=== PATIENT | female | born 1945 | race Caucasian/White ===

== ENCOUNTER 2018-02-25 11:16 | Inpatient (IN) | payer MEDICARE, OTHER ==
[~2018-02-25] VITALS: Ht 152.4 cm; Wt 91.4 kg
[2018-02-25 12:38] LABS: ALANINE AMINOTRANSFERASE 41 U/L (12-78); ALBUMIN 3.6 g/dL (3.4-5.0); ANION GAP 7 mmol/L (5-15); CALCIUM 7.9 mg/dL (8.5-10.1); CHLORIDE 106 mmol/L (98-107); CREATININE 1.12 mg/dL (0.55-1.02)
[2018-02-25 12:43] LABS: ALKALINE PHOSPHATASE 105 U/L (45-117); BILIRUBIN,TOTAL 0.4 mg/dL (0.2-1.0); FREE T4 (FREE THYROXINE) 1.09 ng/dL (0.76-1.46); TOTAL PROTEIN 7.6 g/dL (6.4-8.2); TROPONIN I 0.099 ng/mL (0.000-0.045)
[2018-02-25 12:50] LABS: MEAN CORPUSCULAR HGB CONC 30.8 g/dL (32.4-35.8); MEAN CORPUSCULAR VOLUME 68.3 fL (80-100); MEAN PLATELET VOLUME 8.4 fL (7.4-10.4); PLATELET COUNT 286 x10^3/uL (130-400); RED BLOOD COUNT 3.63 x10^6/uL (3.82-5.3); RED CELL DISTRIBUTION WIDTH 18.1 % (9.6-15.2)
[2018-02-25] MEDS ORDERED: MONT10TA6 PO (12:53)
[2018-02-25] MEDS ORDERED: DICL75TA2 PO (12:53)
[2018-02-25] MEDS ORDERED: OMEP-110 PO (12:53)
[2018-02-25] MEDS ORDERED: HYDR-3307 PO (12:53)
[2018-02-25] MEDS ORDERED: SITA100T PO (12:53)
[2018-02-25] MEDS ORDERED: ATOR40TA78 PO (12:53)
[2018-02-25] MEDS ORDERED: LISI2.5T PO (12:53)
[2018-02-25] MEDS ORDERED: ASPI-430 PO (12:53)
[2018-02-25] MEDS ORDERED: CARB200T PO (12:53)
[2018-02-25] MEDS ORDERED: FLUO20CA19 PO (12:53)
[2018-02-25 13:27] LABS: MD MORPH REVIEW ONLY
[2018-02-25 13:28] LABS: BASOPHILS % (AUTO) 0 % (0-1); EOSINOPHILS % (AUTO) 2 % (1-7); LYMPHOCYTES # (AUTO) 0.77 x10^3/uL (1-3.4); LYMPHOCYTES % (AUTO) 9 % (22-44); MONOCYTES % (AUTO) 5 % (2-9); NEUTROPHILS # (AUTO) 7.65 x10^3/uL (1.8-6.8); NEUTROPHILS % (AUTO) 84 % (42-75)
[2018-02-25 13:29] LABS: ACANTHOCYTES 1+; ANISOCYTOSIS 2+; ECHINOCYTES 1+; HYPOCHROMIA 2+; MICROCYTOSIS 2+; POLYCHROMASIA 1+; SCHISTOCYTES 1+; TARGET CELLS 1+
[2018-02-25 13:31] LABS: SPHEROCYTES 1+
[2018-02-25 13:35] LABS: <PLATELET ESTIMATE> ADEQUATE; <PLT MORPHOLOGY> NORMAL PLT MORPH
[2018-02-25 15:02] LABS: MICROSCOPIC INDICATED
[2018-02-25 15:53] LABS: CULTURE INDICATED? YES
[2018-02-25] MEDS ORDERED: ACETAMINOPHEN 325 MG TABLET PO PRN (16:30)
[2018-02-25] MEDS ORDERED: BISACODYL 10 MG SUPP PR PRN (16:30)
[2018-02-25] MEDS ORDERED: ENOXAPARIN 40 MG/0.4 ML SQ SCH (16:30)
[2018-02-25] MEDS ORDERED: GLUCAGON 1 MG IM PRN (16:30)
[2018-02-25] MEDS ORDERED: POLYETHYLENE GLYCOL 17 GM PACKET PO PRN (16:30)
[2018-02-25] MEDS ORDERED: METHOCARBAMOL 500 MG TABLET PO PRN (16:30)
[2018-02-25] MEDS ORDERED: ENALAPRILAT 1.25 MG/ML, 2ML IVPush PRN (16:30)
[2018-02-25] MEDS ORDERED: ONDANSETRON ODT 4 MG PO PRN (16:30)
[2018-02-25] MEDS ORDERED: DEXTROSE 4 GM TAB.CHEW PO PRN (16:30)
[2018-02-25] MEDS: INSULIN LISPRO 100 UNITS/ML, PEN SQ-INSULIN SCH ×2 (16:30→21:00)
[2018-02-25] MEDS ORDERED: LIDODERM 5% PATCH TD PRN (16:30)
[2018-02-25] MEDS ORDERED: DEXTROSE 50%, 50ML SYRINGE IVPush PRN (16:30)
[2018-02-25] MEDS ORDERED: NITROGLYCERIN 0.4 MG BOTTLE (25 TABS) SL PRN (17:00)
[2018-02-25] MEDS ORDERED: NITROGLYCERIN 0.4 MG/SPRAY SL PRN (17:00)
[2018-02-25 17:02] LABS: HEMOGLOBIN A1C 7.1 % (4.2-6.3)
[2018-02-25 17:19] LABS: THYROID STIMULATING HORMONE 2.65 mIU/L (0.358-3.740)
[2018-02-25] MEDS ORDERED: GUAIFENESIN 100 MG/5 ML, 10ML UDC PO PRN (17:30)
[2018-02-25] MEDS ORDERED: FUROSEMIDE 20 MG/2 ML IV ONE (18:00)
[2018-02-25 18:37] LABS: TROPONIN I 0.446 ng/mL (0.000-0.045)
[2018-02-25] MEDS: HYDROcodone/APAP 5/325 TABLET PO PRN (19:55)
[2018-02-25 20:32] VITALS: BP 114/68
[2018-02-25] MEDS: SODIUM CHLORIDE FLUSH 10ML SYR IVF SCH (21:00)
[2018-02-25] MEDS: CARBAMAZEPINE 200 MG TABLET PO SCH (21:00)
[2018-02-25] MEDS ORDERED: DICLOFENAC SODIUM 75 MG PO SCH (21:00)
[2018-02-25] MEDS: METHYLNALTREXONE 12 MG/0.6 ML SQ SCH (21:08)
[2018-02-25] MEDS: ASPIRIN 81 MG TABLET EC PO SCH (21:09)
[2018-02-25] MEDS: FLUOXETINE HCL 20 MG CAPSULE PO SCH (21:09)
[2018-02-25] MEDS: MONTELUKAST 10 MG TABLET PO SCH (21:09)
[2018-02-25] MEDS: OMEPRAZOLE 20 MG CAPSULE.DR PO SCH (21:09)
[2018-02-25] MEDS: ATORVASTATIN 40 MG TABLET PO SCH (21:09)
[2018-02-25 21:50] LABS: AMPHETAMINE SCREEN, URINE Negative (Negative); BARBITURATE SCREEN, URINE Negative (Negative); BENZODIAZEPINE SCREEN, URINE Negative (Negative); CANNABINOID SCREEN, URINE Negative (Negative); COCAINE SCREEN, URINE Negative (Negative); METHADONE SCREEN, URINE Negative (Negative); OPIATE SCREEN, URINE Positive (Negative)
[2018-02-26] VITALS (9 sets, daily range): BP systolic 97–131; BP diastolic 62–84
[2018-02-26 00:53] LABS: TROPONIN I 0.714 ng/mL (0.000-0.045)
[2018-02-26 04:45] LABS: MEAN CORPUSCULAR HGB CONC 30.7 g/dL (32.4-35.8); MEAN CORPUSCULAR VOLUME 68.2 fL (80-100); MEAN PLATELET VOLUME 8.1 fL (7.4-10.4); PLATELET COUNT 288 x10^3/uL (130-400); RED BLOOD COUNT 3.61 x10^6/uL (3.82-5.3); RED CELL DISTRIBUTION WIDTH 17.9 % (9.6-15.2)
[2018-02-26 04:55] LABS: ANION GAP 6 mmol/L (5-15); CALCIUM 8.2 mg/dL (8.5-10.1); CHLORIDE 105 mmol/L (98-107)
[2018-02-26 04:56] LABS: CREATININE 0.88 mg/dL (0.55-1.02)
[2018-02-26 05:07] LABS: BASOPHILS # (AUTO) 0.01 x10^3/uL (0-0.1); BASOPHILS % (AUTO) 0 % (0-1); EOSINOPHILS # (AUTO) 0.11 x10^3/uL (0-0.4); EOSINOPHILS % (AUTO) 1 % (1-7); LYMPHOCYTES # (AUTO) 1.48 x10^3/uL (1-3.4); LYMPHOCYTES % (AUTO) 16 % (22-44); MD SCAN; MONOCYTES # (AUTO) 0.66 x10^3/uL (0.2-0.8); MONOCYTES % (AUTO) 7 % (2-9); NEUTROPHILS # (AUTO) 6.99 x10^3/uL (1.8-6.8); NEUTROPHILS % (AUTO) 76 % (42-75)
[2018-02-26 06:40] LABS: TROPONIN I 0.781 ng/mL (0.000-0.045)
[2018-02-26] MEDS: IRON SUCROSE COMPLEX 100MG/5ML IV SCH (08:51)
[2018-02-26] MEDS: FLUOXETINE HCL 20 MG CAPSULE PO SCH ×2 (08:55→21:17)
[2018-02-26] MEDS: OMEPRAZOLE 20 MG CAPSULE.DR PO SCH ×2 (08:55→17:33)
[2018-02-26] MEDS: CARBAMAZEPINE 200 MG TABLET PO SCH ×2 (08:55→21:10)
[2018-02-26] MEDS: SENNA/DOCUSATE TABLET PO SCH (08:55)
[2018-02-26] MEDS: SODIUM CHLORIDE FLUSH 10ML SYR IVF SCH ×2 (09:01→21:00)
[2018-02-26] MEDS: INSULIN LISPRO 100 UNITS/ML, PEN SQ-INSULIN SCH ×4 (09:16→20:36)
[2018-02-26] MEDS: HYDROcodone/APAP 5/325 TABLET PO PRN ×3 (09:16→23:33)
[2018-02-26] MEDS ORDERED: NITROGLYCERIN 0.4 MG/SPRAY SL PRN (12:30)
[2018-02-26] MEDS ORDERED: NITROGLYCERIN 0.4 MG BOTTLE (25 TABS) SL PRN (12:30)
[2018-02-26 13:04] LABS: OCCULT BLOOD NEGATIVE (NEGATIVE)
[2018-02-26 14:03] LABS: INTERNATIONAL NORMALIZED RATIO 1.11 (0.93-1.1); PROTHROMBIN TIME 11.4 Seconds (9.6-11.5)
[2018-02-26 14:08] LABS: ALBUMIN 3.6 g/dL (3.4-5.0); BILIRUBIN, DIRECT 0.1 mg/dL (0.1-0.2)
[2018-02-26 14:10] LABS: ABSOLUTE RETICS # 0.065 x10^6/uL (0.5-2.5); BILIRUBIN,INDIRECT 0.3 mg/dL (0.0-2.0); BILIRUBIN,TOTAL 0.4 mg/dL (0.2-1.0); RED BLOOD COUNT 3.76 x10^6/uL (3.82-5.3); RETICULOCYTE COUNT % 1.73 % (0.5-1.5); TOTAL PROTEIN 7.6 g/dL (6.4-8.2)
[2018-02-26 18:58] LABS: OCCULT BLOOD NEGATIVE (NEGATIVE)
[2018-02-26] MEDS: ASPIRIN 81 MG TABLET EC PO SCH (21:08)
[2018-02-26] MEDS: ATORVASTATIN 40 MG TABLET PO SCH (21:08)
[2018-02-26] MEDS: MONTELUKAST 10 MG TABLET PO SCH (21:09)
[2018-02-26] MEDS: metroNIDAZOLE 500 MG TABLET PO SCH (21:10)
[2018-02-26] MEDS: CLARITHROMYCIN 500 MG TABLET PO SCH (21:10)
[2018-02-26] MEDS: TRAZODONE 50MG TABLET PO PRN (23:33)
[2018-02-27] VITALS (8 sets, daily range): BP systolic 87–126; BP diastolic 48–78
[2018-02-27 05:23] LABS: BASOPHILS # (AUTO) 0.03 x10^3/uL (0-0.1); BASOPHILS % (AUTO) 0 % (0-1); EOSINOPHILS # (AUTO) 0.18 x10^3/uL (0-0.4); EOSINOPHILS % (AUTO) 2 % (1-7); LYMPHOCYTES # (AUTO) 1.83 x10^3/uL (1-3.4); LYMPHOCYTES % (AUTO) 20 % (22-44); MD NO; MEAN CORPUSCULAR HEMOGLOBIN 22.1 pg (27.0-34.8); MEAN CORPUSCULAR HGB CONC 31.6 g/dL (32.4-35.8); MEAN CORPUSCULAR VOLUME 69.9 fL (80-100); MEAN PLATELET VOLUME 7.9 fL (7.4-10.4); MONOCYTES # (AUTO) 0.81 x10^3/uL (0.2-0.8); MONOCYTES % (AUTO) 9 % (2-9); NEUTROPHILS % (AUTO) 69 % (42-75); PLATELET COUNT 255 x10^3/uL (130-400); RED BLOOD COUNT 3.52 x10^6/uL (3.82-5.3); RED CELL DISTRIBUTION WIDTH 19.6 % (9.6-15.2)
[2018-02-27 05:36] LABS: CHLORIDE 102 mmol/L (98-107)
[2018-02-27 06:02] LABS: ANION GAP 11 mmol/L (5-15); CHOL/HDL RATIO 2.3; CHOLESTEROL, TOTAL 98 mg/dL (140-239); CREATININE 0.77 mg/dL (0.55-1.02); HDL CHOL % 44 % (28-40); HDL CHOLESTEROL (DIRECT) 43 mg/dL (40-60); LDL CHOLESTEROL,CALCULATED 40 mg/dL (54-169); LDL/HDL RATIO 0.9 (0.5-3.0); TRIGLYCERIDES 77 mg/dL (50-200); VLDL CHOLESTEROL 15 mg/dL (0-25)
[2018-02-27] MEDS: SODIUM CHLORIDE FLUSH 10ML SYR IVF SCH ×2 (09:00→21:28)
[2018-02-27] MEDS: metroNIDAZOLE 500 MG TABLET PO SCH ×2 (09:00→21:30)
[2018-02-27] MEDS: IRON SUCROSE COMPLEX 100MG/5ML IV SCH (09:14)
[2018-02-27] MEDS: INSULIN LISPRO 100 UNITS/ML, PEN SQ-INSULIN SCH ×4 (09:14→21:25)
[2018-02-27] MEDS: OMEPRAZOLE 20 MG CAPSULE.DR PO SCH ×2 (09:15→16:59)
[2018-02-27] MEDS: SENNA/DOCUSATE TABLET PO SCH (09:15)
[2018-02-27] MEDS: CARBAMAZEPINE 200 MG TABLET PO SCH ×2 (09:17→21:24)
[2018-02-27] MEDS: CLARITHROMYCIN 500 MG TABLET PO SCH ×2 (09:17→21:27)
[2018-02-27] MEDS: FLUOXETINE HCL 20 MG CAPSULE PO SCH ×2 (09:17→21:24)
[2018-02-27] MEDS ORDERED: FUROSEMIDE 20 MG/2 ML IV SCH (15:30)
[2018-02-27] MEDS: FUROSEMIDE 40 MG/4 ML IV SCH (16:58)
[2018-02-27] MEDS: CARVEDILOL 3.125 MG TABLET PO SCH (17:00)
[2018-02-27 17:27] LABS: TROPONIN I 0.255 ng/mL (0.000-0.045)
[2018-02-27] MEDS: ASPIRIN 81 MG TABLET EC PO SCH (21:24)
[2018-02-27] MEDS: ATORVASTATIN 40 MG TABLET PO SCH (21:24)
[2018-02-27] MEDS: TRAZODONE 50MG TABLET PO PRN (21:24)
[2018-02-27] MEDS: MONTELUKAST 10 MG TABLET PO SCH (21:25)
[2018-02-27] MEDS: METHYLNALTREXONE 12 MG/0.6 ML SQ SCH (21:29)
[2018-02-28 02:19] VITALS: BP 129/66
[2018-02-28 06:14] VITALS: BP 117/73
[2018-02-28 06:16] LABS: BASOPHILS % (AUTO) 0 % (0-1); EOSINOPHILS # (AUTO) 0.18 x10^3/uL (0-0.4); EOSINOPHILS % (AUTO) 2 % (1-7); LYMPHOCYTES # (AUTO) 1.72 x10^3/uL (1-3.4); LYMPHOCYTES % (AUTO) 21 % (22-44); MD NO; MEAN CORPUSCULAR HGB CONC 31.5 g/dL (32.4-35.8); MEAN CORPUSCULAR VOLUME 72.9 fL (80-100); MEAN PLATELET VOLUME 8.1 fL (7.4-10.4); MONOCYTES # (AUTO) 0.75 x10^3/uL (0.2-0.8); MONOCYTES % (AUTO) 9 % (2-9); NEUTROPHILS # (AUTO) 5.78 x10^3/uL (1.8-6.8); NEUTROPHILS % (AUTO) 69 % (42-75); PLATELET COUNT 273 x10^3/uL (130-400); RED BLOOD COUNT 4.13 x10^6/uL (3.82-5.3); RED CELL DISTRIBUTION WIDTH 21.1 % (9.6-15.2)
[2018-02-28] MEDS: CARVEDILOL 3.125 MG TABLET PO SCH (06:16)
[2018-02-28 06:25] LABS: ALBUMIN 3.5 g/dL (3.4-5.0); ANION GAP 10 mmol/L (5-15); CALCIUM 8.3 mg/dL (8.5-10.1); CHLORIDE 103 mmol/L (98-107); CREATININE 0.91 mg/dL (0.55-1.02)
[2018-02-28 06:31] LABS: TROPONIN I 0.226 ng/mL (0.000-0.045)
[2018-02-28 06:58] VITALS: BP 104/60
[2018-02-28] MEDS: INSULIN LISPRO 100 UNITS/ML, PEN SQ-INSULIN SCH ×2 (08:10→12:41)
[2018-02-28] MEDS ORDERED: IRON SUCROSE COMPLEX 100MG/5ML IV SCH (09:00)
[2018-02-28] MEDS: IRON SUCROSE COMPLEX 100MG/5ML IV SCH (09:43)
[2018-02-28] MEDS: FUROSEMIDE 40 MG/4 ML IV SCH (09:43)
[2018-02-28] MEDS: OMEPRAZOLE 20 MG CAPSULE.DR PO SCH (09:43)
[2018-02-28] MEDS: CARBAMAZEPINE 200 MG TABLET PO SCH (09:44)
[2018-02-28] MEDS: SODIUM CHLORIDE FLUSH 10ML SYR IVF SCH (09:44)
[2018-02-28] MEDS: FLUOXETINE HCL 20 MG CAPSULE PO SCH (09:45)
[2018-02-28] MEDS: SENNA/DOCUSATE TABLET PO SCH (09:45)
[2018-02-28] MEDS: metroNIDAZOLE 500 MG TABLET PO SCH (09:45)
[2018-02-28] MEDS: CLARITHROMYCIN 500 MG TABLET PO SCH (09:45)
[2018-02-28] MEDS ORDERED: OMEP-110 PO (13:08)
[2018-02-28] MEDS ORDERED: CARV3.1212 PO (13:08)
[2018-02-28] MEDS ORDERED: SENN17.23 PO (13:08)
[2018-02-28] MEDS ORDERED: METR500T PO (13:08)
[2018-02-28] MEDS ORDERED: POLY17PO5 PO (13:08)
[2018-02-28] MEDS ORDERED: CLAR500T PO (13:08)
[2018-02-28] MEDS ORDERED: FURO40TA6 PO (13:10)
[2018-02-28] MEDS ORDERED: POTA20PA25 PO (13:10)
[2018-02-28 13:31] VITALS: BP 97/60
== END 2018-02-28 16:31 | disposition home health service (06) | DRG 70 ==
LOC: ED 12:52 → EDIP 15:14 → 4WST 17:56
PROVIDERS: ADMIT Internal Medicine; ATTEND Internal Medicine
PROC: 0T9B70Z Drainage of Bladder with Drainage Device, Via Natural or Artificial Opening (ICD-10-PCS; principal; 2018-02-25)
PROC: 30233N1 Transfusion of Nonautologous Red Blood Cells into Peripheral Vein, Percutaneous Approach (ICD-10-PCS; 2018-02-26)
DX: G93.41 Metabolic encephalopathy (principal); I50.41 Acute combined systolic (congestive) and diastolic (congestive) heart failure; F11.20 Opioid dependence, uncomplicated; I11.0 Hypertensive heart disease with heart failure; E11.40 Type 2 diabetes mellitus with diabetic neuropathy, unspecified; D50.9 Iron deficiency anemia, unspecified; F41.9 Anxiety disorder, unspecified; K59.09 Other constipation; G89.29 Other chronic pain; I25.10 Atherosclerotic heart disease of native coronary artery without angina pectoris; H54.7 Unspecified visual loss; F03.90 Unspecified dementia, unspecified severity, without behavioral disturbance, psychotic disturbance, mood disturbance, and anxiety; B96.81 Helicobacter pylori [H. pylori] as the cause of diseases classified elsewhere; E11.51 Type 2 diabetes mellitus with diabetic peripheral angiopathy without gangrene; G47.00 Insomnia, unspecified; E66.9 Obesity, unspecified; K21.9 Gastro-esophageal reflux disease without esophagitis; Z66 Do not resuscitate; Z95.5 Presence of coronary angioplasty implant and graft; Z82.49 Family history of ischemic heart disease and other diseases of the circulatory system; Z88.0 Allergy status to penicillin; Z68.39 Body mass index [BMI] 39.0-39.9, adult; Z79.899 Other long term (current) drug therapy; Z79.1 Long term (current) use of non-steroidal anti-inflammatories (NSAID); Z79.2 Long term (current) use of antibiotics
CPT/HCPCS: 36415; 70450; 71045; 74177; 80048; 80053; 80061; 80076; 80156; 80307; 81001; 82040; 82140; 82272; 82330; 82607; 82728; 82962; 83036; 83540; 83550; 83605; 83735; 83880; 84100; 84145; 84439; 84443; 84466; 84484; 85014; 85018; 85025; 85045; 85610; 86677; 86850; 86900; 86923; 87040; 87086; 93005; 93306; 99285; G0378; J1650; J1756; J1940; J1815; P9016

== ENCOUNTER 2020-03-31 18:34 | Emergency (ER) | payer MEDICARE, OTHER ==
[~2020-03-31] VITALS: Ht 167.6 cm; Wt 77.3 kg
[~2020-03-31 18:34] MED LIST: ASPI-430 PO; ATOR40TA78 PO; CARB200T PO; CARV3.1212 PO; CLAR-14 PO; DICL75TA3 PO; FLUO20CA19 PO; FURO40TA6 PO; HYDR-3246 PO; LISI2.5T PO; METR500T PO; MONT10TA6 PO; OMEP-110 PO; POLY17PO5 PO; POTA20PA25 PO; SENN17.23 PO; SITA100T PO
--- NOTE | 2020-03-31 18:40 | NUR ---
PT BIB [facility] FROM THE [facility] WHERE SHE SUSTAINED A MECH GLF, HITTING THE LEFT SIDE OF HER HEAD AND HER L WRIST. PT HAS LARGE HEMATOMA AND SMALL LACERATION TO L FOREHEAD, AND MILD SWELLING TO L WRIST. HX DEMENTIA, OX2, AT BASELINE. PER EMS, PT WAS HYPERTENSIVE EN ROUTE 250/80, BUT BP CAME DOWN TO 156/84 JUST BEFORE ARRIVAL. PT TAKES A BABY ASPIRIN. EMS REPORTED PT HAS HAD SEVERAL FALLS RECENTLY.
[2020-03-31] MEDS ORDERED: DIPH,PERTUSS(ACELL),TET VAC/PF 0.5 ML IM-VACC ONE ×2 (19:00→19:56)
[2020-03-31] MEDS ORDERED: LIDOCAINE 1%, 10ML INFIL ONE (19:00)
[2020-03-31] MEDS ORDERED: LIDOCAINE-MPF 1%, 5ML ONE (19:02)
--- NOTE | 2020-03-31 19:15 | NUR ---
PT TO CT VIA [facility].
--- NOTE | 2020-03-31 19:18 | NUR ---
SPOKE WITH ROMINA, ENGINEERING RECRUITER AT THE [employer], . SHE STATES PT HAS HAD MULTIPLE FALLS RECENTLY AND MORE CONFUSION THAN NORMAL. WONDERING IF PT MAY HAVE A UTI. WILL NOTIFY ERP. THE [facility] IS UNABLE TO PICK PT UP WHEN DISCHARGED.
[2020-03-31 19:22] LABS: BASOPHILS % (AUTO) 0 % (0-1); EOSINOPHILS % (AUTO) 1 % (1-7); LYMPHOCYTES % (AUTO) 15 % (22-44); MD NO; MEAN CORPUSCULAR HEMOGLOBIN 33.4 pg (27.0-34.8); MEAN CORPUSCULAR HGB CONC 33.9 g/dL (32.4-35.8); MEAN PLATELET VOLUME 7.4 fL (7.4-10.4); MONOCYTES % (AUTO) 6 % (2-9); NEUTROPHILS % (AUTO) 78 % (42-75); PLATELET COUNT 215 x10^3/uL (130-400); RED BLOOD COUNT 4.36 x10^6/uL (3.82-5.3); RED CELL DISTRIBUTION WIDTH 12.5 % (9.6-15.2)
[2020-03-31 19:28] LABS: ALBUMIN 4.1 g/dL (3.4-5.0); ANION GAP 7 mmol/L (5-15); CALCIUM 9.2 mg/dL (8.5-10.1); CHLORIDE 101 mmol/L (98-107); CREATININE 0.86 mg/dL (0.55-1.02)
--- NOTE | 2020-03-31 20:43 | NUR ---
HEAD WOUND WAS CLEANED AND BANDAGED BY SKEIN BLEACHER. VOLAR SPLINT APPLIED TO L WRIST, CMS INTACT. STRAIGHT CATH DONE AND URINE SENT TO LAB.
[2020-03-31 20:51] LABS: MICROSCOPIC AUTO
--- NOTE | 2020-03-31 21:12 | NUR ---
ERP WAS IN FOR RECHECK.
[2020-03-31] MEDS ORDERED: HYDROcodone/APAP 5/325 TABLET ONE (21:18)
--- NOTE | 2020-03-31 21:25 | NUR ---
PT MEDICATED WITH NORCO FOR PAIN. CRACKER AND WATER PROVIDED. RV'WD POC WITH PT.
[2020-03-31] MEDS ORDERED: HYDROcodone/APAP 5/325 TABLET PO ONE (21:30)
--- NOTE | 2020-03-31 22:19 | NUR ---
PT SLEPT FOR A WHILE. NOW AWAKE, REQUESTING TO GO HOME. PT TO BE TRANSPORTED VIA [facility]. UPDATED PT ON POC. PT NO LONGER C/O PAIN, BP IMPROVED.
--- NOTE | 2020-03-31 23:40 | NUR ---
ELIANA HERE TO TAKE PT BACK TO THE [facility]. CALLED ROMINA, MANAGER ADMINISTRATIVE, TO LET HER KNOW PT ON HER WAY. REPORTED TO EMS. COPIES OF ALL LABS AND RADIOLOGY REPORTS, D/C PAPERS AND RX X2 GIVEN TO ELIANA.
[2020-03-31 23:59] VITALS: BP 161/98
== END 2020-04-01 00:02 | disposition home or self-care (01) ==
LOC: ED 22:15
DX: S52.92XA Unspecified fracture of left forearm, initial encounter for closed fracture (principal); S00.83XA Contusion of other part of head, initial encounter; S09.90XA Unspecified injury of head, initial encounter; E87.6 Hypokalemia; R42 Dizziness and giddiness; I10 Essential (primary) hypertension; E11.9 Type 2 diabetes mellitus without complications; W18.30XA Fall on same level, unspecified, initial encounter; Y93.89 Activity, other specified; Y92.009 Unspecified place in unspecified non-institutional (private) residence as the place of occurrence of the external cause; Y99.8 Other external cause status
CPT/HCPCS: 29125; 36415; 70450; 73110; 80048; 81001; 82040; 85025; 90471; 90715; 99285; J3490

== ENCOUNTER 2020-09-14 13:50 | Emergency (ER) | payer MEDICARE, OTHER ==
[~2020-09-14] VITALS: Ht 165.1 cm; Wt 81.8 kg
[~2020-09-14 13:50] MED LIST changes: -HYDR-3246 PO; +HYDR-3248 PO
--- NOTE | 2020-09-14 13:57 | NUR ---
FROM OF [facility] AFTER PT FELL TWICE TODAY WHICH IS NOT PT'S NORMAL. IS BLIND AND WILL TRY TO HIT STAFF. IT IS ABNORMAL FOR PT TO FALL MORE FREQUENTLY. MENTATING AT BASELINE AOX0. PT NOTED TO HAVE HEMATOMA TO L SIDE FACE. NOT ON BLOOD THINNERS. SITTER AT BEDSIDE PT ATTEMPTS TO GET OUT OF GURNEY FREQUENTLY. PT PROVIDED W/ WARM BLANKET. REPOSITIONED FOR COMFORT. PROVIDED W/ WARM BLANKET.
--- NOTE | 2020-09-14 14:05 | NUR ---
PT NOTED DURING PHYSICAL ASSESSMENT TO HAVE HEMAOTOMA TO L SIDE FACE AND EXTENSIVE BRUISING TO R KNEE.
--- NOTE | 2020-09-14 14:06 | NUR ---
ERP DR. HART AT BEDSIDE FOR EVAL. PT NOTED TO DESAT TO 86% RA W/ GOOD WAVEFORM. PLACED ON 2L NC. NOW SATING 96%. ERP DR. HART NOTIFIED.
[2020-09-14] MEDS ORDERED: MORPHINE SULFATE 4 MG/ML, 1ML ONE ×2 (14:20→15:33)
[2020-09-14] MEDS ORDERED: MORPHINE SULFATE 4 MG/ML, 1ML IVPush ONE (14:30)
[2020-09-14] MEDS ORDERED: SODIUM CHLORIDE FLUSH 10ML SYR IVF ONE (14:30)
[2020-09-14 14:48] LABS: MICROSCOPIC NOT IND
[2020-09-14 15:00] LABS: ANION GAP 8 mmol/L (5-15); BASOPHILS % (AUTO) 1 % (0-1); CALCIUM 8.8 mg/dL (8.5-10.1); CHLORIDE 108 mmol/L (98-107); CREATININE 1.16 mg/dL (0.55-1.02); EOSINOPHILS % (AUTO) 1 % (1-7); LYMPHOCYTES % (AUTO) 12 % (22-44); MEAN CORPUSCULAR HEMOGLOBIN 33.2 pg (27.0-34.8); MEAN CORPUSCULAR HGB CONC 33.4 g/dL (32.4-35.8); MEAN PLATELET VOLUME 7.7 fL (7.4-10.4); MONOCYTES % (AUTO) 7 % (2-9); NEUTROPHILS % (AUTO) 80 % (42-75); PLATELET COUNT 203 x10^3/uL (130-400); RED BLOOD COUNT 4.06 x10^6/uL (3.82-5.3); RED CELL DISTRIBUTION WIDTH 13.2 % (9.6-15.2)
[2020-09-14 15:03] LABS: TROPONIN I < 0.015 ng/mL (0.000-0.045)
[2020-09-14 15:04] LABS: MD NO
--- NOTE | 2020-09-14 15:24 | NUR ---
TASK RN, COVERING MEAL BREAK. CALL TO RADIOLOGY TO INFORM OF ORDERS. REFUSE COLLECTOR AWARE PT HAS BEEN MEDICATED, WILL AWAIT CT C SPINE READ PRIOR TO XRAYS.
--- NOTE | 2020-09-14 15:37 | NUR ---
PT UNABLE TO STAY STILL IN XRAY. ERP NOTIFIED. 2ND DOSE OF MORPHINE 2MG IV PROVIDED. PT CONTINUES TO MOVE IN BED, STATING "PLEASE HELP ME".
[2020-09-14] MEDS ORDERED: morphine SULFATE 10 MG/ML, 1ML IVPush ONE (16:00)
--- NOTE | 2020-09-14 16:19 | NUR ---
PT FIGHTING SITTER. KEEPS TAKING OFF HER O2 AND O2 SAT MONITOR. STATES "I WILL BITE. I WILL BITE"
--- NOTE | 2020-09-14 16:48 | NUR ---
PT DESATING AND SUSATINING AT 85-86% RA. ERP DR. HART NOTIFIED. DEYSI REMAINS AT BEDSIDE FOR PT MONITORING.
--- NOTE | 2020-09-14 16:54 | NUR ---
THROUGHPUT: CALLED DAUGHTER LAURIE REGARDING DISCHARGE AND NEED HOME, SHE STATES SHE IS UNABLE TO PROVIDE TRANSPORT, CALLED THE [facility] UNALBLE TO PROVIDE TRANSPORT, CALLED AND LEFT MESSAGE FOR [facility] FOR RIDE HOME. PER DR. HART PT WILL NEED OXYGEN AT HOME.
--- NOTE | 2020-09-14 17:32 | NUR ---
PT RESTING ON GURNEY. SITTER REMAINS AT BEDSIDE. MITTENS APPLIED PT CONTINUES TO ATTEMPT TO TAKE OFF 02 AND PULSE OX.
--- NOTE | 2020-09-14 17:37 | NUR ---
REPORT GIVEN TO MARGARITA STOREY AT THE [facility]. ALL QUESTIONS ANSWERED. AWAITING O2 AND [facility] TRANSPORT.
--- NOTE | 2020-09-14 18:18 | NUR ---
THOUGHPUT: ELIANA WILL TOY [employer] AT 1999 FOR HOME
--- NOTE | 2020-09-14 18:48 | NUR ---
PT RESTING ON GURNEY. NADN. LAZCANO.
--- NOTE | 2020-09-14 19:29 | NUR ---
PT RESTING ON GURNEY. NADN. LAZCANO.
--- NOTE | 2020-09-14 20:17 | NUR ---
PT SLEEPING ON CLAUDIA. NADN. LAZCANO.
--- NOTE | 2020-09-14 20:45 | NUR ---
ASSISTED PT UP TO [facility] WITH RESIDENTIAL SUPPORT WORKER. PT VOIDED WITHOUT DIFFICULTY. LINENS CHANGED, HYGIENE PROVIDED.
--- NOTE | 2020-09-14 21:17 | NUR ---
REPORT GIVEN TO MARGARITA ZULUAGA.
--- NOTE | 2020-09-14 21:40 | NUR ---
PT'S BILAT MITTS REMOVED, PT IS NOT A SAFETY THREAT TO HERSELF OR OTHERS. ABLE TO MONITOR PT INTERMITTENTLY.
--- NOTE | 2020-09-14 22:16 | NUR ---
PT RESTING QUIETLY IN [facility]. SITTER/TECH OUTSIDE ROOM AT ALL TIMES.
--- NOTE | 2020-09-15 00:30 | NUR ---
SITTER/TECH REMAINS AT BS TO COMFORT PT AND MAINTAIN SAFETY.
[2020-09-15 00:45] VITALS: BP 197/88
--- NOTE | 2020-09-15 01:21 | NUR ---
CALLED [facility] AND REPORTED TO STAFF THERE. OXYGEN DELIVERY HAS ALREADY BEEN SET UP. IANSA TAKING PT BACK TO FACILITY NOW.
== END 2020-09-15 01:24 | disposition home or self-care (01) ==
LOC: ED 18:06
DX: S39.012A Strain of muscle, fascia and tendon of lower back, initial encounter (principal); S80.01XA Contusion of right knee, initial encounter; I10 Essential (primary) hypertension; E11.9 Type 2 diabetes mellitus without complications; R00.0 Tachycardia, unspecified; M54.2 Cervicalgia; E11.65 Type 2 diabetes mellitus with hyperglycemia; X58.XXXA Exposure to other specified factors, initial encounter; Y93.89 Activity, other specified; Y92.89 Other specified places as the place of occurrence of the external cause; Y99.8 Other external cause status
CPT/HCPCS: 36415; 70450; 71045; 72072; 72100; 72125; 73560; 80048; 81003; 82040; 84484; 85025; 93005; 96374; 96376; 99285; J2270

== ENCOUNTER 2020-12-27 03:25 | Emergency (ER) | payer MEDICARE, OTHER ==
[~2020-12-27] VITALS: Ht 157.5 cm; Wt 48.0 kg
[2020-12-27] MEDS ORDERED: LIDOCAINE 1%-EPI 1:100K, 20ML ONE (03:45)
--- NOTE | 2020-12-27 03:58 | NUR ---
PT ELISE MONROY FROM [facility], PT TRIPPED AND FELL INTO HER WALKER, PT HAS A LAC TO HER LEFT FOREHEAD. ERP AT BEDSIDE, PT IN GOWN, RESTING ON GURNEY, AND PLACED ON CONTINUOUS MONITORING.
[2020-12-27] MEDS ORDERED: DIPH,PERTUSS(ACELL),TET VAC/PF 0.5 ML IM-VACC ONE ×2 (04:00→04:28)
[2020-12-27] MEDS ORDERED: LIDOCAINE 0.5%-EPI 1:200K, 50ML INFIL ONE (04:00)
[2020-12-27] MEDS ORDERED: BACITRACIN ZINC OINT 500U/GM, 0.9 GM ONE (05:01)
[2020-12-27 05:22] VITALS: BP 138/61
--- NOTE | 2020-12-27 05:23 | NUR ---
PT HAD SUTURES PLACED, PT TOLERATED PROCEDURE WELL, DENIES NEEDS AT THIS TIME.
--- NOTE | 2020-12-27 06:52 | NUR ---
BEDSIDE REPORT FROM MARGARITA LUCIANO FOR TRANSFER OF PATIENT CARE.
--- NOTE | 2020-12-27 07:06 | NUR ---
CALLED REPORT TO [facility], THEY ARE EXPECTING HER BACK VIA [facility] AFTER 27
--- NOTE | 2020-12-27 07:22 | NUR ---
PATIENT REMOVED GOWN AND SOILED SELF WITH URINE, CLEANED PATIENT UP, CLEAN GOWN ON PATIENT AND 2 WARM BLANKETS PROVIDED FOR COMFORT. WAITING FOR [facility] PICKUP.
--- NOTE | 2020-12-27 08:22 | NUR ---
EMS given discharge instructions and they have confirmed that they understand the instructions. Patient wheeled out on gurney with paramedics, all patient belongings taken with patient back to [facility].
== END 2020-12-27 08:23 ==
LOC: ED 07:06
DX: S01.01XA Laceration without foreign body of scalp, initial encounter (principal); S01.81XA Laceration without foreign body of other part of head, initial encounter; S09.90XA Unspecified injury of head, initial encounter; R41.82 Altered mental status, unspecified; R94.31 Abnormal electrocardiogram [ECG] [EKG]; I10 Essential (primary) hypertension; E11.9 Type 2 diabetes mellitus without complications; W01.198A Fall on same level from slipping, tripping and stumbling with subsequent striking against other object, initial encounter; Y93.89 Activity, other specified; Y92.89 Other specified places as the place of occurrence of the external cause; Y99.8 Other external cause status
CPT/HCPCS: 12002; 70450; 70486; 72125; 90471; 90715; 93005; 99285

== ENCOUNTER 2021-01-31 11:59 | Emergency (ER) | payer MEDICARE, OTHER ==
[~2021-01-31] VITALS: Ht 152.4 cm; Wt 72.7 kg
[~2021-01-31 11:59] MED LIST changes: -LISI2.5T PO; +LISI2.5T12 PO
--- NOTE | 2021-01-31 12:07 | NUR ---
PT BIB EMS FOR GLF. PT HAS HEMATOMA AND LAC TO BACK OF HEAD PER EMS. PT HEAD BANDAGED ON ARRIVAL. PT ON HOSPICE CARE AND HOSPICE ON[facility]ENE APPROVED TRANSPORT. EMS NOT SURE WHICH HOSPICE GROUP. PT AWAKE AND KEEPS STATING "PLEASE HELP ME". PER EMS STAFF AT PT'S FACILITY STATES THIS IS NORMAL FOR PT. PT HAS BRUISES OVER HER BODY. PER EMS STAFF STATES THE PT FALLS FREQUENTLY. PT NOT ABLE TO STATE IF SHE HAS PAIN ANYWHERE. PT CONNECTED TO MONITORING EQUIPMENT. RAILS UP. CALL LIGHT WITHIN REACH.
--- NOTE | 2021-01-31 12:15 | NUR ---
OFF THE FLOOR TO CT
--- NOTE | 2021-01-31 12:28 | NUR ---
PT BACK FROM CT
[2021-01-31] MEDS ORDERED: SODIUM CHLORIDE FLUSH 10ML SYR IVF ONE (12:30)
[2021-01-31] MEDS ORDERED: DIPH,PERTUSS(ACELL),TET VAC/PF 0.5 ML IM-VACC ONE ×2 (12:30→13:22)
--- NOTE | 2021-01-31 12:32 | NUR ---
[facility]. DAUGHTER LAURIE HAMILTON POA [phone]
--- NOTE | 2021-01-31 12:35 | NUR ---
[facility] NURSE [phone]
--- NOTE | 2021-01-31 13:01 | NUR ---
ATTEMPTED TO CALL DAUGHTER, NO ANSWER
[2021-01-31 13:15] LABS: BASOPHILS % (AUTO) 0 % (0-1); EOSINOPHILS % (AUTO) 2 % (1-7); LYMPHOCYTES % (AUTO) 17 % (22-44); MEAN CORPUSCULAR HEMOGLOBIN 34.5 pg (27.0-34.8); MEAN CORPUSCULAR HGB CONC 33.3 g/dL (32.4-35.8); MEAN PLATELET VOLUME 7.3 fL (7.4-10.4); MONOCYTES % (AUTO) 9 % (2-9); NEUTROPHILS % (AUTO) 72 % (42-75); PLATELET COUNT 252 x10^3/uL (130-400); RED BLOOD COUNT 2.94 x10^6/uL (3.82-5.3); RED CELL DISTRIBUTION WIDTH 14.2 % (9.6-15.2)
[2021-01-31 13:24] LABS: ANION GAP 5 mmol/L (5-15); CHLORIDE 107 mmol/L (98-107); CREATININE 0.78 mg/dL (0.55-1.02)
[2021-01-31 14:00] VITALS: BP 156/65
[2021-01-31] MEDS ORDERED: LIDOCAINE 1%-EPI 1:100K, 20ML SQ ONE ×2 (14:00)
--- NOTE | 2021-01-31 14:00 | NUR ---
RECEIVED REPORT FROM DELMA AVILA. PT LAYING ON GURNEY WITH EYES CLOSED, RESPONDS TO LIGHT STIMULI, FEARFUL & ASKING FOR NON-SPECIFIC HELP, REASSURANCE & COMFORT MEASURES PROVIDED, NAD, CALL LIGHT WITHIN REACH.
[2021-01-31] MEDS ORDERED: LIDOCAINE 1%-EPI 1:100K, 20ML ONE (14:13)
--- NOTE | 2021-01-31 15:03 | NUR ---
TASK RN: PT SLEEPING ON THUAN TAYLOR STUDENT AT BEDSIDE.
--- NOTE | 2021-01-31 16:02 | NUR ---
PT CONTINUES LAYING ON GURNEY ABLE TO DOZE OFF BUT OCCAS RESTLESS, REDIRECTION/REASSURANCE & COMFORT MEASURES PROVIDED, NAD, CALL LIGHT WITHIN REACH.
[2021-01-31] MEDS ORDERED: BACITRACIN ZINC OINT 500U/GM, 0.9 GM ONE (16:50)
--- NOTE | 2021-01-31 17:01 | NUR ---
PT LAYING ON GURNEY ABLE TO DOZE OFF BUT OCCAS RESTLESS- REMOVED CLOTHES AND WAS FOUND SITTING UP IN BED, REDRESSED WITH REDIRECTION/REASSURANCE GIVEN, COMFORT MEASURES PROVIDED, NAD, CALL LIGHT WITHIN REACH.
--- NOTE | 2021-01-31 17:30 | NUR ---
UNABLE TO RETAKE VS MULT TIMES PT BECOMES AGITATED WITH MONITORS BEING ATTACHED.
--- NOTE | 2021-01-31 18:55 | NUR ---
Patient correspondence school teacher (Eulogio) given wound care/discharge instructions and they have confirmed that they understand the instructions. Patient left ER via WC accompanited by [employer] back to the [facility] .
== END 2021-01-31 18:59 | disposition home or self-care (01) ==
LOC: ED 13:00
DX: S01.01XA Laceration without foreign body of scalp, initial encounter (principal); R41.82 Altered mental status, unspecified; I10 Essential (primary) hypertension; E11.9 Type 2 diabetes mellitus without complications; Z88.0 Allergy status to penicillin; W01.0XXA Fall on same level from slipping, tripping and stumbling without subsequent striking against object, initial encounter; Y93.89 Activity, other specified; Y92.009 Unspecified place in unspecified non-institutional (private) residence as the place of occurrence of the external cause; Y99.8 Other external cause status
CPT/HCPCS: 12001; 12002; 36415; 70450; 80048; 82040; 85025; 90471; 90715; 99284